=== PATIENT | male | born 1960 | race Two or more races ===

== ENCOUNTER 2021-03-04 07:53 | Emergency (ER) | payer MEDICAID, OTHER ==
[~2021-03-04] VITALS: Ht 165.1 cm; Wt 85.7 kg
--- NOTE | 2021-03-04 08:09 | NUR ---
DR MORRISON AT THE BEDSIDE
--- NOTE | 2021-03-04 08:11 | NUR ---
The patient bibs with c/o having fever/loss of taste and generalized weakness day after took Covid shot. The patient is in room air and denies SOB. Respiration regular and unlabored. No cough noted. The patient is attached to the monitor. Will continue to monitor the patient.
--- NOTE | 2021-03-04 08:18 | NUR ---
COVID SWAB DONE AND SENT TO THE LAB
[2021-03-04] MEDS ORDERED: IV NS 0.9% 1,000 ML BAG IV ONE (08:30)
--- NOTE | 2021-03-04 08:35 | NUR ---
STARTED LINE, BLOOD SPECIMEN COLLECTED AND SENT TO THE LAB. THE PATIENT TOLERATED IV INSERTION WELL.
--- NOTE | 2021-03-04 08:45 | NUR ---
[employer]IA PRODUCER AT BS
--- NOTE | 2021-03-04 08:45 | NUR ---
x-ray tech at the bedside
--- NOTE | 2021-03-04 08:48 | NUR ---
URINE COLLECTED AND SENT TO THE LAB
[2021-03-04 08:50] LABS: BASOPHILS % (AUTO) 0.3 % (0.0-2.0); EOSINOPHILS % (AUTO) 0.5 % (0.0-6.0); HEMATOCRIT 47 % (39-51); HEMOGLOBIN 15.7 g/dL (13.5-17.5); LYMPHOCYTES # (AUTO) 1.4 K/uL (0.8-4.8); MEAN CORPUSCULAR HGB CONC 33 g/dl (31.0-36.0); MEAN CORPUSCULAR VOLUME 93 fL (80-96); MONOCYTES # (AUTO) 0.7 K/uL (0.1-1.30); NEUTROPHILS # (AUTO) 8.1 K/uL (1.8-8.9); NEUTROPHILS % (AUTO) 78.2 % (43.0-81.0); PLATELET COUNT (AUTO) 158 K/uL (150-450); RED BLOOD CELL COUNT(AUTO) 5.06 MIL/uL (4.5-6.0); WHITE BLOOD COUNT (AUTO) 10.3 K/uL (4.3-11.0)
[2021-03-04 09:02] LABS: ALBUMIN 3.6 g/dL (3.4-5.0); BILIRUBIN,DIRECT 0.3 mg/dL (0.0-0.2); BILIRUBIN,TOTAL 1.2 mg/dL (0.2-1.0); CALCIUM, SERUM 8.7 mg/dL (8.5-10.1); CREATININE 1.1 mg/dL (0.6-1.3); POTASSIUM 4.1 mmol/L (3.5-5.1); TOTAL PROTEIN, SERUM 7.4 g/dL (6.4-8.2)
[2021-03-04 09:20] LABS: BILIRUBIN,URINE NEGATIVE (NEGATIVE); COLOR,URINE YELLOW (YELLOW); LEUKOCYTE ESTERASE ,URINE NEGATIVE (NEGATIVE); NITRITE, URINE NEGATIVE (NEGATIVE); PROTEIN,URINE NEGATIVE (NEGATIVE); UGLUCOSE >=1000 mg/dL (NEGATIVE); UROBILINOGEN,URINE 0.2 EU/dL (0.2)
[2021-03-04] MEDS ORDERED: METF-442 PO (09:21)
[2021-03-04] MEDS ORDERED: INSULIN REGULAR, HUMAN 100 UNIT/ML 10 ML VIAL ONE (09:27)
[2021-03-04] MEDS ORDERED: INSULIN REGULAR, HUMAN 100 UNIT/ML 10 ML VIAL SQ ONE (09:30)
[2021-03-04 09:52] LABS: BACTERIA,URINE Rare /HPF (None Seen); RBC,URINE 0-2 /HPF (0-2); WBC,URINE 0-2 /HPF (0-3)
[2021-03-04 09:53] LABS: SQUAMOUS EPITHELIAL CELL,UR Rare /HPF (None Seen)
--- NOTE | 2021-03-04 09:55 | NUR ---
Blood sugar 443. Dr Bauman aware. IV removed. Catheter intact and site benign. Pressure and 4x4 applied to site. No bleeding noted.Patient discharged to home in stable condition. Written and verbal after care instructions given. Patient verbalizes understanding of instruction.
[2021-03-04 09:56] VITALS: BP 142/75
== END 2021-03-04 09:56 | disposition home or self-care (01) ==
LOC: ER 08:01
DX: E11.65 Type 2 diabetes mellitus with hyperglycemia (principal); R43.9 Unspecified disturbances of smell and taste; Z20.822 Contact with and (suspected) exposure to COVID-19
CPT/HCPCS: 36415; 71045; 80048; 80076; 81001; 82962 ×4; 83690; 85025; 87086; 87426; 96360; 96372; 99284; C9803; J1815; J7030; 87186-TC